=== PATIENT | female | born 1950 | race Caucasian/White ===

== ENCOUNTER 2016-03-27 10:51 | Day surgery (SDC) | payer MEDICARE ==
[~2016-03-27] VITALS: Ht 165.1 cm; Wt 82.1 kg
[~2016-03-27 10:51] MED LIST: ALPR0.5T PO; CEFAZOLIN 2GM PREMIX 50 ML IV PRN; CHOL100013 PO; FENTANYL PF 100 MCG/2 ML VIAL. IV PRN; HYDR-971 PO; HYDROMORPHONE 2 MG/ML VIAL. IV PRN; IV RINGERS,LACTATED 1000ML 1,000 ML IV SCH; LEVO25TA2 PO; LEVO50TA PO; LIDOCAINE 1% 1 ML SYRINGE. ID PRN; MELA1TAB6 PO; MORPHINE SULFATE 2 MG/ML DISP.SYRIN. IV PRN; MULT-208 PO; NIAC500T PO; OMEG500C PO; ONDANSETRON PF 4 MG/2 ML VIAL. IV PRN; PROCHLORPERAZINE 10 MG/2 ML VIAL. IV PRN
[2016-03-27] MEDS ORDERED: BUPIVAC MPF-EPI 0.5%-1:200000 30 ML VIAL. ONE (10:58)
[2016-03-27] MEDS ORDERED: FENTANYL PF 100 MCG/2 ML VIAL. ONE (11:43)
[2016-03-27] MEDS ORDERED: DEXAMETHASONE SOD PHOS 20 MG/5 ML VIAL. ONE (11:50)
[2016-03-27] MEDS ORDERED: ONDANSETRON PF 4 MG/2 ML VIAL. ONE (11:50)
[2016-03-27] MEDS ORDERED: PROPOFOL 20 ML IV ONE (11:50)
[2016-03-27] MEDS ORDERED: LIDOCAINE 2% 100 MG/5 ML DISP.SYRIN. ONE (11:51)
[2016-03-27] MEDS ORDERED: HYDR-971 PO (12:22)
[2016-03-27] MEDS ORDERED: SEVOFLURANE 31 TO 60 MINUTES. IH ONE (12:22)
--- NOTE | 2016-03-27 12:25 | PDOC ---
BRIEF OPERATIVE NOTE Pre-Op Diagnosis left nipple cyst excise left nipple cyst; excision part of left nipple k erlinda du ebl 5 ivf see anesthesia record #[id number] JENNIFFER HAYDEN MD Mar 27, 2016 12:25
[2016-03-27] MEDS: FENTANYL PF 100 MCG/2 ML VIAL. IV PRN ×2 (12:41→12:50)
[2016-03-27] MEDS ORDERED: HYDROCODONE/APAP 5/325MG TABLET. PO PRN (13:15)
[2016-03-27 13:33] VITALS: BP 149/74
--- NOTE | 2016-03-27 18:12 | OP ---
DATE OF SURGERY: 03/27/2016 PREOPERATIVE DIAGNOSIS: Left nipple cyst. POSTOPERATIVE DIAGNOSIS: Left nipple cyst. PROCEDURE: 1. Excision of left nipple cyst. 2. Excision of part of her left nipple. SURGEON: Amisha Hayden M.D. ANESTHESIA: General. ESTIMATED BLOOD LOSS: 5 mL. IV FLUIDS: See anesthesia record. INDICATIONS: The patient is a 65-year-old female who has had a previous excision of a left nipple lesion that pathology confirmed to be a sebaceous cyst. She is here with recurrent white cheesy drainage through her nipple and here for excision. DESCRIPTION OF PROCEDURE: After informed consent was obtained, the patient was taken to the operating room and placed in supine position. After adequate induction of general anesthesia, she was prepped and draped in usual sterile fashion. The anticipated skin incision was injected with local anesthetic. Skin incision was made, subcutaneous tissue divided with cautery. The dissection was carried under the dermis of the areola and nipple and a communication was easily identifiable from the opening in nipple into the dermis and underlying tissue. All of this tissue around dermis was excised, there was not definitive cyst visible and so therefore all the tissue just beneath the nipple was excised. At this point, there was a hole in the center of her nipple itself, which is where she had been draining white discharge. This was the inferior aspect of her nipple where her firmness and drainage had come from. This was excised and sent to pathology for examination. The remaining nipple was then closed with 4-0 Vicryl in subcuticular fashion so that the nipple did have some eversion to it and minimal deformity. The primary incision was closed with 4-0 Vicryl in a running subcuticular fashion. Sterile dressings were placed. She tolerated procedure well. There were no apparent complications. She is in the process of being transferred in stable condition to recovery room. AMISHA HAYDEN MD DR: KYLEIGH/tomy JOB#: [id number] / [id number] ISHA Hall PA-C
--- NOTE | 2016-03-28 16:11 | PATHOLOGY ---
PATHOLOGY REPORT * * * * * * * * FINAL DIAGNOSIS: Segments of skin and fibromuscular tissue, left nipple cyst: - Small epidermal inclusion cyst showing chronic inflammation. 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 COMMENT: There is no evidence of malignancy. (JPM:; d/t: 03/28/16) REPORT ELECTRONICALLY SIGNED BY: Koko Gates M.D. DATE/TIME: 03/28/2016 16:10 * * * * * * * * GROSS PATHOLOGY: The specimen is received in formalin, labeled "Ramon Montana - left nipple cyst." Received are 2 yellow-reagan to pink-reagan, rubbery, and irregular soft tissue, one with overlying skin measuring 1.7 x 0.5 x 0.5 cm and 1.2 x 0.8 x 0.7 cm. The resection margins are differentially inked. The specimen is sectioned and entirely submitted in cassette A1. (TTL; 03/27/2016) INITIAL CPT CODE(S): A; 90661 Professional services performed [place] [facility] [address] Technical services performed by [facility] at [address] [place] [address], [facility] [address], [place] [address]. SPECIMEN(S) RECEIVED: A.Left nipple cyst CLINICAL HISTORY: cyst PATIENT: RAMON MONTANA /AGE: 708/18/1950 (Age: 65) PATIENT #: [id number] ALT CASE #: SPECIMEN COLLECTION DATE: 03/27/2016 SPECIMEN RECEIVED DATE: 03/27/2016 [facility] - [address] [place] [address] - PHONE: [phone] * * * END OF REPORT * * *
== END 2016-03-27 13:57 | disposition home or self-care (01) ==
LOC: SURG 10:51
PROVIDERS: ATTEND Surgery
DX: N60.02 Solitary cyst of left breast (principal); N60.82 Other benign mammary dysplasias of left breast; J40 Bronchitis, not specified as acute or chronic; Z90.49 Acquired absence of other specified parts of digestive tract; E03.9 Hypothyroidism, unspecified
CPT/HCPCS: 19120; J0690; J1100; J2405; J2704; J3010; J3490; 88304

== ENCOUNTER → 2017-09-19 | Outpatient (CLI) | payer MEDICARE | END | disposition home or self-care (01) | LOC: US 09:44 | DX: R10.9 Unspecified abdominal pain (principal); E03.9 Hypothyroidism, unspecified; Z90.49 Acquired absence of other specified parts of digestive tract | CPT/HCPCS: 76700 ==

== ENCOUNTER → 2017-09-19 | Outpatient (CLI) | payer MEDICARE | END | disposition home or self-care (01) | LOC: US 09:43 | DX: R10.2 Pelvic and perineal pain (principal); E03.9 Hypothyroidism, unspecified; Z90.49 Acquired absence of other specified parts of digestive tract | CPT/HCPCS: 76830; 76856 ==

== ENCOUNTER → 2020-10-04 | Outpatient (CLI) | payer MEDICARE ==
[~2020-10-04] MED LIST changes: -CEFAZOLIN 2GM PREMIX 50 ML IV PRN; -FENTANYL PF 100 MCG/2 ML VIAL. IV PRN; +HYDR-3164 PO; -HYDR-971 PO; -HYDROMORPHONE 2 MG/ML VIAL. IV PRN; -IV RINGERS,LACTATED 1000ML 1,000 ML IV SCH; -LEVO25TA2 PO; +LEVO25TA55 PO; -LIDOCAINE 1% 1 ML SYRINGE. ID PRN; -MORPHINE SULFATE 2 MG/ML DISP.SYRIN. IV PRN; -ONDANSETRON PF 4 MG/2 ML VIAL. IV PRN; -PROCHLORPERAZINE 10 MG/2 ML VIAL. IV PRN
--- NOTE | 2020-10-04 11:18 | KCIC ---
Examination: MRI of the right knee without contrast HISTORY: History of right knee pain COMPARISON: None available Technique: Multiplanar, multisequence MR imaging of the right knee was performed without contrast FINDINGS: The anterior cruciate ligament, posterior cruciate ligament appears intact. There is oblique increase d signal identified in the posterior horn of the medial meniscus with blunting of the body of the med ial meniscus likely tear. The lateral meniscus appears intact.. There is moderate increased T2 signal identified about the medial collateral ligament and medial patellofemoral ligament likely grade 2 sp rain. The lateral collateral ligamentous complex including the fibular collateral ligament, biceps fe dyana tendon, popliteus tendon appears intact. The medial, lateral retinaculum appears intact. Small knee joint effusion is identified. Moderate soft tissue edema identified anterior to the knee joint. There is mild superficial fraying o f cartilage identified in the medial, lateral, patellofemoral compartments. Mild increased T2 signal identified in the lateral femoral condyle likely mild trabecular edema or contusion. Small popliteal cyst is identified. The extensor mechanism appears intact. Mild joint space loss medial, lateral, patellofemoral compartments. Impression: 1. Oblique increased signal identified in the posterior horn of the medial meniscus with blunting of the body of the medial meniscus likely tear. 2. Moderate increased T2 signal identified about the medial collateral ligament and medial patellofe moral ligament likely grade 2 sprain. 3. Small knee joint effusion with small popliteal cyst. 4. Mild tricompartmental degenerative changes. 5. Mild increased T2 signal identified in the lateral femoral condyle likely mild trabecular edema o r contusion. Electronically signed by: Luis Angel Hopper MD (10/04/2020 11:16 AM) [id number]
== END ==
LOC: KCIC MRI 09:12
PROVIDERS: ATTEND Physical Therapist
DX: M25.461 Effusion, right knee (principal); M71.21 Synovial cyst of popliteal space [Baker], right knee; M17.11 Unilateral primary osteoarthritis, right knee; M79.89 Other specified soft tissue disorders
CPT/HCPCS: 73721